=== PATIENT | male | born 1960 | race Caucasian/White ===

== ENCOUNTER 2017-02-24 15:34 | Inpatient (IN) | payer OTHER ==
[~2017-02-24] VITALS: Ht 172.7 cm; Wt 87.0 kg
[~2017-02-24 15:34] MED LIST: ALD25 PO; CENTRUM SILVER1 TA4 PO; CORGARD20 MG PO; FERROUS SULFAT325 M2 PO; FOL1 PO; LAC PO; LAC30L PO; LASIX20 MG PO; MAG PO; NATURAL IRON65 MG PO; PRI20 PO; PROPRANOLOL HCL10 MG PO; PROTONIX40 M1 PO; PROTONIX40 MG PO; THERAGRAN-M1 TA4 PO; THI100 PO
--- NOTE | 2017-02-24 16:03 | NUR ---
ABD PAIN STARTED LAST NIGHT 01/31 WITH MULTIPLE EPISODES OF N/V TODAY. HAS HX OF TUMORS AND CURRHOSIS AND RECENT CHEMO. DENIES DIARRHEA. ABD SOFT AND TENDER TO PALP RUQ WITHOUT PALP MASSES. BS PRESENT. PT ARRIVES ALERT AND ORIENTED WITH VSS AND MILD DISTRESS DUE TO PAIN UPON ARRIVAL. CONNECTED TO CNC MACHINIST 2ND SHIFT. PT AWAITING MD LOPEZ AT THIS TIME
--- NOTE | 2017-02-24 16:17 | NUR ---
DR PALACIO AT BEDSIDE FOR EVAL
[2017-02-24 17:05] LABS: CALCIUM 9.5 mg/dL (8.5-10.1); CHLORIDE SERUM 103 mmol/L (98-107); CREATININE SERUM 1.1 mg/dL (0.7-1.3); GFR1 > 60 mL/min; GLUCOSE SERUM 119 mg/dL (74-106); POTASSIUM SERUM 4.1 mmol/L (3.5-5.1); SODIUM SERUM 143 mmol/L (136-145)
[2017-02-24 17:07] LABS: BASOPHIL % 0.1 % (0-2)
[2017-02-24 17:09] LABS: ALBUMIN 3.9 g/dL (3.4-5.0); ALKALINE PHOSPHATASE 162 U/L (46-116); ALT/SGPT 50 U/L (16-63); AST/SGOT 67 U/L (15-37); BILIRUBIN TOTAL 5.1 mg/dL (0.20-1.00); LIPASE 142 IU/L (73-393); TOTAL PROTEIN, SERUM 7.8 g/dL (6.4-8.2)
--- NOTE | 2017-02-24 17:14 | NUR ---
PT LAYING WITH VSS AND NO DISTRESS NOTED. EASILY AROUSABLE TO NAME
[2017-02-24 17:35] LABS: PLATELET COUNT 79 x10^3mcL (130-400); RED CELL DISTRIBUTION WIDTH 15.5 % (11.5-14.5)
[2017-02-24 17:43] LABS: microscopic required? YES; urine erythrocyte NEGATIVE (NEGATIVE)
[2017-02-24] MEDS ORDERED: NATURE S BLEND TP (18:47)
--- NOTE | 2017-02-24 18:49 | NUR ---
PT TO BE ADMITTED. EXPLAINED TO PT AND PREPPED FOR ADMISSION
--- NOTE | 2017-02-24 18:53 | NUR ---
REPORT GIVEN TO AMADA BUCK RN
[2017-02-24 19:26] VITALS: BP 133/81
--- NOTE | 2017-02-24 19:30 | NUR ---
RECEIVED PT FROM ED VIA TAYE. ORIENTED PT TO ROOM AND SURROUNDINGS. IV NOTED TO LAC PATENT AND INTACT. TELE 4 PLACED ON PT READING NSR. INSTRUCTED PT ON THE USE OF CALL LIGHT FOR ASSISTANCE. ENDORSED PT TO PRIMARY NURSE ALESSANDRO
[2017-02-24 19:41] LABS: AMPHETAMINE QUAL UR NONE DETECTED (NEG <=1000)
[2017-02-24 19:42] LABS: T3 TOTAL 0.87 ng/mL
[2017-02-24 19:45] LABS: CHOLESTEROL/HDL RATIO 2.3; MAGNESIUM 1.6 mg/dL (1.8-2.4); PHOSPHOROUS 2.7 mg/dL (2.5-4.9)
[2017-02-24 19:46] LABS: FREE T4 1.19 ng/dL (0.76-1.46); FREE THYROXINE INDEX 3.1 ug/dL (1.4-4.5); T4(THYROXINE) 8.6 ug/dL (4.7-13.3)
--- NOTE | 2017-02-24 20:48 | NUR ---
NEWLY ADMITTED 57 YEARS OLD MALE PT, ALERT, PLEASANT AND VERY COOPERATIVE.STARTED IV NS AT 120 ML PER HOUR INFUSING WELL LEFT AC. AND STARTED LEVAQUIN IV FOR UTI. TOLERATED WELL. WILL MONITOR.
[2017-02-24 20:50] VITALS: BP 133/81
--- NOTE | 2017-02-24 22:14 | NUR ---
FLU VACCINE IM WAS ADMINISTERED IN THE RIGHT DELTOID AREA. TOLERATED WELL.
--- NOTE | 2017-02-24 22:55 | NUR ---
PT C/O ABDOMINAL PAIN 10/01. MEDICATED WITH PERCOCET 1 TAB PO. WILL MONITOR.
--- NOTE | 2017-02-25 03:15 | NUR ---
PT C/O NUASEATED. MEDICATED WITH ZOFRAN 4 MG IVPUSH. WILL MONITOR.
--- NOTE | 2017-02-25 03:24 | NUR ---
PT C/O STOMACH PAIN 10/31. MEDICATED WITH NORCO 1 TAB PO. IVSITE INFILTRATED LEFT AC.
--- NOTE | 2017-02-25 05:34 | NUR ---
PT HAS VOMITED ONCE WITH LIQUIDY VOMIUS, MILDLY GREENISH LIQUIDY. DENIES ANY PAIN FOR NOW. STILL HAS IV NS AT 120 ML PER HOUR INFUSING WELL IN THE LEFT HAND, NEW IV SITE. LEFT AC INFILTRATED. MADE COMFORTABLE IN BED. WAS MEDICATED WITH ZOSYN IV AND LEVQUIN IV. NO ADVERSE REACTION NOTED. WILL MONITOR.
[2017-02-25 05:36] VITALS: BP 152/81
--- NOTE | 2017-02-25 07:50 | NUR ---
RECEIVED PT IN BED ALERT AND ORIENTD X4. NSR ON TELE MONITOR. NO SOB. ABD SOFT/ROUND, BS ACTIVE, DENIES N/V/D. PT REPORTS FEELING MUCH BETTER, STATES ABD PAIN IS ONLY RATED 2/10 AND TOLERABLE AT THIS TIME. VOIDS FREELY. AMBULATORY. SKIN CDI. INSTRUCTED TO USE CALL LIGHT WHEN IN NEED OF ANY ASSISTANCE.
[2017-02-25 08:57] VITALS: BP 116/76
[2017-02-25 12:44] VITALS: BP 109/75
[2017-02-25 16:29] VITALS: BP 154/81
--- NOTE | 2017-02-25 16:59 | NUR ---
PT VOMITED X2. TOTAL OF 1000ML EMESIS. ZOFRAN IVP GIVEN. PT COMPLAINING OF SHARP PAIN TO MID LOWER ABDOMEN RATED 7/10. NORCO PO GIVEN.
--- NOTE | 2017-02-25 17:40 | NUR ---
PT CONTINUES TO COMPLAIN OF PAIN TO LOWER ABDOMEN RATED 8/10. PERCOCET PO GIVEN.
--- NOTE | 2017-02-25 19:30 | NUR ---
PT IS ALERT AND ORIENTED X 4. PLEASANT AND COOPERATIVE. LUNGS CLEAR ON AUSCULTATIONS BILATERALY. ROOM AIR. PT CONSTANTLY HAS ABDOMINAL PAIN AND OCCASIONALLY NAUSEA AND VOMITING. HE GOT ZOFRAN FROM THE DAY SHIFT. AND WAS FEELING BETTER AT THE BEGINNING OF THE SHIFT. PT HAS HX OF LIVER CA AND LUNG CA. WITH CHEMO THERAPY. LAST CHEMO WAS SEPTEMBER THIS YEAR. APPETITE IS ALWAYS POOR BUT ALWAYS LIKE TO DRINK WATER AND 7-UP. STILL GETTING LEVQUIN IV AND FLAGYL IV FOR UTI AND CHOLITHIASIS DEVELOPING CHOLECYSTITIS. STILL HAS IV NS AT 120 ML PER HOUR INFUSING WELL IN THE LEFT HAND. FOR PAIN MANAGEMENT PT IS GETTING NORCO AND PERCOCET AND WAS EFFECTIVE FAIRLY. WILL CONTINUE TO MONITOR.
--- NOTE | 2017-02-25 20:26 | NUR ---
PT C/O MODERATE ABDOMINAL PAIN 10/31. MEDICATED WITH NORCO 1 TAB PO. WILL MONITOR.
[2017-02-25 21:06] VITALS: BP 140/77
--- NOTE | 2017-02-25 21:28 | NUR ---
PT STATED THAT HE IS ANXIOUS AND WANTED TO REST. MEDICATED WITH ATIVAN 1 MG PO. WILL MONITOR.
--- NOTE | 2017-02-26 03:22 | NUR ---
PT C/O ABDOMINAL AND BACK PAIN 10/01. MEDICATED WITH DILAUDID 2 MG PO. WILL MONITOR.
--- NOTE | 2017-02-26 05:10 | NUR ---
PT IS RESTING. WAS MEDICATED WITH DILAUDID 2 MG PO AND WAS EFFECTIVE IN MANAGING HIS ABDOMINAL PAIN. STILL HAS IV NS T 120 ML PER HOUR INFUSING WELL IN THE LEFT HAND. MADE COMFORTABLE IN BED. CALL LIGHT WITHIN EASY REACH.
[2017-02-26 05:51] VITALS: BP 146/76
--- NOTE | 2017-02-26 07:10 | NUR ---
PT IN FOWLERS, NO DISTRESS REPORTED. PT ABLE TO VERBALIZED NEEDS. DENIES PAIN AT MOMENT. IV INFUSING WELL TO LEFT HAND #22. BED IN LOWEST POSITION, CALL LIGHT WITHIN REACH.
[2017-02-26 07:16] LABS: CALCIUM 8.1 mg/dL (8.5-10.1); CHLORIDE SERUM 103 mmol/L (98-107); GFR1 > 60 mL/min; GLUCOSE SERUM 110 mg/dL (74-106); MAGNESIUM 1.8 mg/dL (1.8-2.4); PHOSPHOROUS 1.6 mg/dL (2.5-4.9); POTASSIUM SERUM 3.8 mmol/L (3.5-5.1); SODIUM SERUM 138 mmol/L (136-145)
[2017-02-26 08:41] LABS: RED CELL DISTRIBUTION WIDTH 15.6 % (11.5-14.5)
[2017-02-26 08:57] VITALS: BP 130/78
[2017-02-26 09:20] LABS: ATYPICAL LYMPH 1 %; BAND NEUTROPHIL 0 % (0-10); BASOPHIL 0 % (0-2); MONOCYTE 3 % (0-7); SEGMENTED NEUTROPHILS 88 % (37-75)
[2017-02-26 09:21] LABS: PLATELET MORPHOLOGY PLATELETS DECREASED; rbc morphology (normal/abnorm) ABNORMAL (NORMAL)
[2017-02-26 09:27] LABS: PLATELET COUNT 46 x10^3mcL (130-400)
--- NOTE | 2017-02-26 10:45 | NUR ---
PT C/O NAUSEA. MEDICATED PER EMAR PT TOLERATED WELL. PT STATES NAUSEA CEASED POST MED ADMINISTRATION. STATES FEELING BETTER. CALL LIGHT WITHIN REACH.
--- NOTE | 2017-02-26 10:49 | NUR ---
DR. GRAHAM IN TO SEE PT.
--- NOTE | 2017-02-26 11:00 | NUR ---
CONSENT TO EGD WITNESSED. PT VERBALIZED UNDERSTANDING FOR PROCEDURE AFTER SPECIALIST EXPLAINED PROCEDURE.
--- NOTE | 2017-02-26 11:10 | NUR ---
PT TAKEN DOWN TO GI LAB VIA BED. NO DISTRESS AT MOMENT.
--- NOTE | 2017-02-26 12:30 | NUR ---
PT BACK FROM GI LAB. TRANSPORTED VIA BED. PT DENIES PAIN AT MOMENT. VITAL SIGNS STABLE. CALL LIGHT WITHIN REACH. WILL CONTINUE TO MONITOR.
[2017-02-26 13:12] VITALS: BP 133/75
[2017-02-26 18:11] VITALS: BP 152/86
--- NOTE | 2017-02-26 18:15 | NUR ---
PT C/O PAIN 6/10 ABDOMEN RUQ. MEDICATED PER EMAR, PASSED AFTERNOON MEDS. PT TOLERATED WELL. PT STATES PAIN 3/10 POST MEDICATION ADMINISTRATION. CALL LIGHT WITHIN REACH.
--- NOTE | 2017-02-26 19:31 | NUR ---
RECEIVED PT FROM PREVIOUS SHIFT. A/OX4. DENIES PAIN. DENIES SOB ON RA. IV PATENT AND INFUSING WELL WITH NO S/S OF INFILTRATION. CALL LIGHT WITHIN REACH, BED IN LOW POSITION. WILL CONTINUE TO MONITOR.
[2017-02-26 21:09] VITALS: BP 133/64
--- NOTE | 2017-02-27 03:01 | NUR ---
PAIN UNCONTROLLED BY DILAUDID. PAIN 10/31 TO ABD. PT C/O FEELING CONSTIPATED. DR BINGHAM NOTIFIED AND ORDER FOR TORADOL RECEIVED AND ADMINISTERED. EXPLAINED TO PT THAT DILAUDID AND NORCO COULD CONTRIBUTE TO CONSITPATION AND TORADOL WILL BE GIVEN AT THIS TIME FOR PAIN. OFFERED PT DULCOLAX SUPPOSITORY, PT STATES HE WILL WAIT UNTIL MORNING. WILL CONTINUE TO MONITOR.
[2017-02-27 05:37] VITALS: BP 125/82
--- NOTE | 2017-02-27 06:21 | NUR ---
NO ACUTE CHANGES THROUGHOUT SHIFT. PT A/OX4. DENIES PAIN AFTER RECEIVING TORADOL. PAIN 05/03. CALL LIGHT WITHIN REACH, BED IN LOW POSITION. WILL CONTINUE TO MONITOR.
[2017-02-27 07:01] LABS: CARBON DIOXIDE 29.3 mmol/L (21-32); CHLORIDE SERUM 103 mmol/L (98-107); CREATININE SERUM 0.9 mg/dL (0.7-1.3); GFR1 > 60 mL/min; GLUCOSE SERUM 123 mg/dL (74-106); MAGNESIUM 1.9 mg/dL (1.8-2.4); PHOSPHOROUS 2.9 mg/dL (2.5-4.9); POTASSIUM SERUM 3.6 mmol/L (3.5-5.1); SODIUM SERUM 138 mmol/L (136-145)
[2017-02-27 07:05] LABS: BASOPHIL % 0 % (0-2); PLATELET COUNT 61 x10^3mcL (130-400); RED CELL DISTRIBUTION WIDTH 15.6 % (11.5-14.5)
--- NOTE | 2017-02-27 07:20 | NUR ---
REASSESSMENT DONE. PT AWAKE, ALERT, ORIENTED. COOPERATIVE OF CARE. DENIES PAIN AT MOMENT. EFFORTLESS BREATHING ON ROOM AIR. IV INFUSING WELL TO LH #22 NS AT 120ML/HR. BED IN LOWEST POSITION, CALL LIGHT WITHIN REACH.
[2017-02-27 09:18] VITALS: BP 121/75
[2017-02-27 09:45] LABS: BILIRUBIN DIRECT 2.34 mg/dL (0.0-0.2); BILIRUBIN TOTAL 3.8 mg/dL (0.20-1.00)
[2017-02-27 09:49] LABS: ALBUMIN 2.5 g/dL (3.4-5.0); TOTAL PROTEIN, SERUM 5.7 g/dL (6.4-8.2)
--- NOTE | 2017-02-27 10:46 | NUR ---
PT PICKED UP BY [facility] STAFF FOR [facility] SCAN. PT TRANSPORTED VIA WHEELCHAIR. NO DISTRESS NOTED.
--- NOTE | 2017-02-27 12:12 | NUR ---
PT BACK FROM [facility]AN. PT SITTING IN BED. DENIES PAIN AT MOMENT. CALL LIGHT WITHIN REACH.
[2017-02-27 13:26] VITALS: BP 143/93
--- NOTE | 2017-02-27 16:45 | NUR ---
PASSED AFTERNOON MEDS. PT TOLERATED WELL. PT DENIES PAIN AT MOMENT. EFFORTLESS BREATHING NOTED. CALL LIGHT WITHIN REACH.
[2017-02-27 17:30] VITALS: BP 137/87
--- NOTE | 2017-02-27 18:12 | NUR ---
PT HAD VOMITING EPISODE, MEDICATED WITH ANTIEMETIC MEDICATION, PT TOLERATED WELL. PT DENIES NAUSEA AT MOMENT. DENIES ABDOMINAL PAIN. REPORTS ABDOMINAL BLOATING WHEN TAKING FLUIDS. CALL LIGHT WITHIN REACH.
--- NOTE | 2017-02-27 19:34 | NUR ---
SHIFT REASSESSMENT DONE.PATIENT ALERT AND ORIENTED.BREATHING EASY.AMBULATORY,REMINDED TO CALL FOR ASSISTANCE.NS AT 120 CC/ HOUR.IV SITE L HAND,C/O TENDERNESS FROM PREVIOUS SHIFT,REMINDED,I CAN START A NEW ONE.MED SURG PATIENT.SKIN INTACT.HAD EGD YEDTERDATY,VARICIES,DX.SCD INTACT. NO PAIN AT THIS TIME.CALL LIGHT IN REACH.
--- NOTE | 2017-02-27 19:38 | NUR ---
SHIFT REASSESSMENT DONE.PATIENT ALERT AND ORIENTED.BREATHING EASY.AMBULATORY.NS AT 120 CC/ HOUR.IV SITE L HAND PATENT.MED SURG PATIENT.SKIN INTACT.SCD ORDERED.NO PAIN AT THIS TIME,REMINDED TO CALL IF HE IS ON PAIN.VOIDING,AMBULATORY REPORTED.PLEASANT AND COOPERATIVE OF CARE.
[2017-02-27 20:41] VITALS: BP 147/96
--- NOTE | 2017-02-27 21:02 | NUR ---
PATIENT PM MEDS GIVEN,SWALLOWS WELL.HE SAYS THAT EVERYTIME WE GIVE HIM MEDS THRU IV HE IS NAUSEATED,REMINDED IT SHOULD SETTLE DOWN HIS STOMACH.PROTONIX AND REGLAN.ALL OTHER PM MEDS GIVEN.SWALLOWS WELL.
--- NOTE | 2017-02-28 00:44 | NUR ---
PATIENT CHECKED AT INTERVALS.NO RESP DISTRESS.
--- NOTE | 2017-02-28 04:56 | NUR ---
PATIENT GIVEN NORCO,C/O BACK PAIN.ALSO K PAD IN PLACE.PATIENT AMBULATORY RESTROOM.VOIDING WELL.PATIENT SURGICAL CONSULT DR OROZCO,NPO,NO ORDER YET BUT CHECKLIST INITIATED.
[2017-02-28 05:08] VITALS: BP 134/82
--- NOTE | 2017-02-28 06:00 | NUR ---
PATIENT GIVEN AM MEDS.NS AT 120 CC/ HOUR.IV SITE REMAINS PATENT.WILL ENDORSE TO NEXT SHIFT.CALL LITE IN REACH.
--- NOTE | 2017-02-28 07:50 | NUR ---
RC'D PT RESTING IN BED WITH NO APPARENT SIGNS OF DISTRESS. A/A/O/X4, SPEECH CLEAR AND APPROPRIATE. MED-SURG. DENIES CHEST PAIN/PRESSURE. PALP PULSES, NO EDEMA. RESPIRATIONS EQUAL AND UNLABORED. LUNGS CTA. ON RA, DENIES SOB. ABDOMEN SOFT AND TENDER TO TOUCH. ACTIVE BS. DENIES N/V AT THIS TIME. VOIDS FREELY, DENIES BURNING. AMBULATORY WITH BRP. SKIN W/D/I. DENIES PAIN AT THIS TIME. IV PATENT AND INFUSING. CALM AND COOPERATIVE AT THIS TIME. BED IN LOW POSITION. EDUCATED ON USING CALL LIGHT WHEN NEEDING ASSISTANCE. CALL LIGHT IN REACH. WILL CONTINUE TO MONITOR.
--- NOTE | 2017-02-28 09:20 | NUR ---
PT NAUSEATED AT THIS TIME. REQUESTED TO HOLD OFF ON MEDICATIONS AT THIS TIME. WILL CONTINUE TO MONITOR.
[2017-02-28 09:40] VITALS: BP 137/85
[2017-02-28] MEDS ORDERED: CAR1 PO (12:30)
[2017-02-28] MEDS ORDERED: PROTONIX40 MG/Pac1 PO (12:31)
[2017-02-28] MEDS ORDERED: REG10 PO (12:35)
[2017-02-28] MEDS ORDERED: LAC30L PO (12:39)
[2017-02-28 13:09] VITALS: BP 137/85
--- NOTE | 2017-02-28 14:26 | NUR ---
PT COMPLAINING OF AUSEA. MEDICATED WITH ZOFRAN IVP PRN PER MED REC. RESPIRATION EQUAL AND UNLABORED BILAT. CALL LIGHT IN REACH. WILL CONTINUE TO MONITOR.
--- NOTE | 2017-02-28 17:10 | NUR ---
PT PROVIDED WITH DC HOME INSTRUCTIONS. GIVEN MEDICATION EDUCATION. MADE AWARE PRESCRIPTIONS HAVE BEEN SENT TO PT'S SELECTED PHARMACY. MADE AWARE OF FOLLOW UP APPT WITH PCP. INSTRUCTED ON IMPORTANCE OF FOLLOWING MEDICATIONS ORDERED. MADE AWARE OF WORSENING SIGNS AND SYMPTOMS TO RETURN TO ED OR REPORTTO PCP. PT VERBALIZED UNDERSTANDING OF INSTRUCTIONS. TELE AND IV DC'D, CATHETER INTACT. PT TRANSPORTED VIA WC TO THE LOBBY WITH ALL PERSONAL BELONGINGS IN HAND ACCOMPANIED BY DITCH CLEANER, FREE OF ANY APPARENT SIGNS OF DISTRESS.
== END 2017-02-28 17:05 | disposition home or self-care (01) | DRG 444 ==
LOC: ED 15:34 → DU 18:13 → MU 02-27 17:55
PROVIDERS: Emergency Medicine; Internal Medicine Gastroenterology; Student in an Organized Health Care Education/Training Program; ADMIT Family Medicine Sports Medicine
PROC: 0DB68ZX Excision of Stomach, Via Natural or Artificial Opening Endoscopic, Diagnostic (ICD-10-PCS; principal; 2017-02-26 11:15)
DX: K80.20 Calculus of gallbladder without cholecystitis without obstruction (principal); N17.0 Acute kidney failure with tubular necrosis; C22.0 Liver cell carcinoma; N39.0 Urinary tract infection, site not specified; I85.00 Esophageal varices without bleeding; K31.84 Gastroparesis; B18.2 Chronic viral hepatitis C; K70.31 Alcoholic cirrhosis of liver with ascites; F10.20 Alcohol dependence, uncomplicated; K29.80 Duodenitis without bleeding; R80.9 Proteinuria, unspecified; E83.42 Hypomagnesemia; E83.39 Other disorders of phosphorus metabolism; E78.5 Hyperlipidemia, unspecified; F17.210 Nicotine dependence, cigarettes, uncomplicated; Z68.26 Body mass index [BMI] 26.0-26.9, adult; I10 Essential (primary) hypertension; D69.6 Thrombocytopenia, unspecified
CPT/HCPCS: 43235; 78226; 82962; 83880; 84439; 90658; A9537; C9113; J0290; J1200; J1610; J1885; J1956; J2250; J2270; J2310; J2405; J2543; J2765; J3010; J3475; J3490; J7030; Q0092

== ENCOUNTER 2017-04-15 09:20 | Emergency (ER) | payer OTHER ==
[~2017-04-15 09:20] MED LIST changes: +CAR1 PO; +NATURE S BLEND TP; +PROTONIX40 MG/Pac1 PO; +REG10 PO
[2017-04-15 11:08] VITALS: BP 128/51
== END 2017-04-15 11:24 | disposition home or self-care (01) ==
LOC: ED 09:20
DX: S16.1XXA Strain of muscle, fascia and tendon at neck level, initial encounter (principal); S39.012A Strain of muscle, fascia and tendon of lower back, initial encounter; I10 Essential (primary) hypertension; V49.9XXA Car occupant (driver) (passenger) injured in unspecified traffic accident, initial encounter; Y93.89 Activity, other specified; Y92.89 Other specified places as the place of occurrence of the external cause; Y99.8 Other external cause status

== ENCOUNTER 2017-04-21 14:34 | Emergency (ER) | payer OTHER ==
[~2017-04-21] VITALS: Ht 180.3 cm; Wt 88.5 kg
[2017-04-21 14:50] VITALS: Ht 180.3 cm; Wt 88.5 kg
[2017-04-21 16:10] LABS: BILIRUBIN TOTAL 4.6 mg/dL (0.20-1.00); CALCIUM 7.6 mg/dL (8.5-10.1); CREATININE SERUM 2.6 mg/dL (0.7-1.3)
[2017-04-21 16:15] LABS: ALBUMIN 2.1 g/dL (3.4-5.0); TOTAL PROTEIN, SERUM 4.7 g/dL (6.4-8.2)
[2017-04-21 16:17] LABS: PLATELET COUNT 126 x10^3mcL (130-400); RED CELL DISTRIBUTION WIDTH 16.5 % (11.5-14.5)
[2017-04-21 16:18] LABS: POTASSIUM SERUM 6.2 mmol/L (3.5-5.1)
[2017-04-21 17:23] LABS: BAND NEUTROPHIL 4 % (0-10); BASOPHIL 0 % (0-2); METAMYELOCTE 1 % (0-2); MONOCYTE 3 % (0-7); SEGMENTED NEUTROPHILS 85 % (37-75)
[2017-04-21 17:26] LABS: rbc morphology (normal/abnorm) ABNORMAL (NORMAL); target cell (codocyte) 2+
[2017-04-21 17:27] LABS: PLATELET MORPHOLOGY PLATELETS DECREASED
[2017-04-21 21:43] VITALS: BP 99/72
== END 2017-04-21 21:43 | disposition short-term general hospital (02) ==
LOC: ED 14:34
PROVIDERS: Emergency Medicine
DX: S36.039A Unspecified laceration of spleen, initial encounter (principal); K92.2 Gastrointestinal hemorrhage, unspecified; N17.9 Acute kidney failure, unspecified; V49.9XXA Car occupant (driver) (passenger) injured in unspecified traffic accident, initial encounter; Y93.89 Activity, other specified; Y99.8 Other external cause status; Y92.89 Other specified places as the place of occurrence of the external cause
CPT/HCPCS: 83880; C9113; J1200; J2405; J2765; J3490; J7030; J7040; P9016; Q0092

== ENCOUNTER 2017-08-06 13:06 | Inpatient (IN) | payer OTHER ==
[~2017-08-06] VITALS: Ht 172.7 cm; Wt 84.1 kg
[2017-08-06 14:05] LABS: BASOPHIL % 0.2 % (0-2)
[2017-08-06 14:13] LABS: CARBON DIOXIDE 27.4 mmol/L (21-32); CHLORIDE SERUM 93 mmol/L (98-107); GFR1 > 60 mL/min; GLUCOSE SERUM 124 mg/dL (74-106); POTASSIUM SERUM 4.2 mmol/L (3.5-5.1); SODIUM SERUM 129 mmol/L (136-145)
[2017-08-06 14:17] LABS: ALKALINE PHOSPHATASE 144 U/L (46-116); ALT/SGPT 28 U/L (16-63); AMYLASE 32 U/L (25-115); AST/SGOT 48 U/L (15-37); BILIRUBIN TOTAL 6.2 mg/dL (0.20-1.00); LIPASE 133 IU/L (73-393); TOTAL PROTEIN, SERUM 7.8 g/dL (6.4-8.2)
[2017-08-06 14:18] LABS: ALBUMIN 2.9 g/dL (3.4-5.0)
[2017-08-06 14:28] LABS: PLATELET COUNT 98 x10^3mcL (130-400); RED CELL DISTRIBUTION WIDTH 16.1 % (11.5-14.5)
[2017-08-06] MEDS ORDERED: TRAMADOL HCL50 MG PO (16:24)
[2017-08-06] MEDS ORDERED: PROPRANOLOL HCL10 MG PO (16:24)
[2017-08-06] MEDS ORDERED: NOR10T PO (16:25)
[2017-08-06 16:49] LABS: microscopic required? YES; urine erythrocyte TRACE (NEGATIVE)
[2017-08-06 16:50] VITALS: BP 104/57
[2017-08-06 17:01] LABS: MAGNESIUM 1.9 mg/dL (1.8-2.4); PHOSPHOROUS 2.7 mg/dL (2.5-4.9)
[2017-08-06 17:01] LABS: AMPHETAMINE QUAL UR NONE DETECTED (NEG <=1000)
[2017-08-06 17:02] LABS: CHOLESTEROL/HDL RATIO 2.2
[2017-08-06 17:11] LABS: T3 TOTAL 0.79 ng/mL
[2017-08-06 17:34] LABS: FREE T4 1.57 ng/dL (0.76-1.46); FREE THYROXINE INDEX 3.6 ug/dL (1.4-4.5); T4(THYROXINE) 9.3 ug/dL (4.7-13.3)
[2017-08-06 21:18] VITALS: BP 111/56
[2017-08-07 06:00] VITALS: BP 118/67
[2017-08-07 06:32] LABS: BASOPHIL % 0.1 % (0-2)
[2017-08-07 06:44] LABS: CALCIUM 8.2 mg/dL (8.5-10.1); CARBON DIOXIDE 25.4 mmol/L (21-32); CHLORIDE SERUM 98 mmol/L (98-107); CREATININE SERUM 0.9 mg/dL (0.7-1.3); GFR1 > 60 mL/min; GLUCOSE SERUM 97 mg/dL (74-106); POTASSIUM SERUM 4.1 mmol/L (3.5-5.1); SODIUM SERUM 130 mmol/L (136-145)
[2017-08-07 06:55] LABS: PLATELET COUNT 68 x10^3mcL (130-400); RED CELL DISTRIBUTION WIDTH 16.5 % (11.5-14.5)
[2017-08-07 09:20] VITALS: BP 120/77
[2017-08-07 12:29] VITALS: BP 113/67
[2017-08-07 18:24] VITALS: BP 112/63
[2017-08-07 21:12] VITALS: BP 124/73
[2017-08-08 04:08] VITALS: BP 128/80
[2017-08-08 06:25] LABS: CALCIUM 7.6 mg/dL (8.5-10.1); CARBON DIOXIDE 23.7 mmol/L (21-32); CHLORIDE SERUM 99 mmol/L (98-107); CREATININE SERUM 0.9 mg/dL (0.7-1.3); GFR1 > 60 mL/min; GLUCOSE SERUM 108 mg/dL (74-106); PHOSPHOROUS 3.1 mg/dL (2.5-4.9); POTASSIUM SERUM 4.2 mmol/L (3.5-5.1); SODIUM SERUM 131 mmol/L (136-145)
[2017-08-08 08:12] LABS: BASOPHIL % 0.2 % (0-2); PLATELET COUNT 90 x10^3mcL (130-400); RED CELL DISTRIBUTION WIDTH 16.8 % (11.5-14.5)
[2017-08-08 09:25] VITALS: BP 119/70
[2017-08-08 10:05] LABS: BILIRUBIN DIRECT 2.98 mg/dL (0.0-0.2); BILIRUBIN TOTAL 3.8 mg/dL (0.20-1.00)
[2017-08-08 10:09] LABS: TOTAL PROTEIN, SERUM 5.5 g/dL (6.4-8.2)
[2017-08-08 12:44] VITALS: BP 129/77
[2017-08-08 17:56] VITALS: BP 114/65
[2017-08-08 22:18] VITALS: BP 105/64
[2017-08-09] VITALS (8 sets, daily range): BP systolic 96–127; BP diastolic 51–74
[2017-08-09 05:23] LABS: BASOPHIL % 0.2 % (0-2); PLATELET COUNT 161 x10^3mcL (130-400)
[2017-08-09 05:31] LABS: CALCIUM 7.9 mg/dL (8.5-10.1); CARBON DIOXIDE 22.6 mmol/L (21-32); CHLORIDE SERUM 106 mmol/L (98-107); CREATININE SERUM 0.9 mg/dL (0.7-1.3); GFR1 > 60 mL/min; GLUCOSE SERUM 114 mg/dL (74-106); POTASSIUM SERUM 5.3 mmol/L (3.5-5.1); SODIUM SERUM 134 mmol/L (136-145)
[2017-08-09 05:33] LABS: RED CELL DISTRIBUTION WIDTH 16.4 % (11.5-14.5)
[2017-08-09 15:20] LABS: BASOPHIL % 0.7 % (0-2); PLATELET COUNT 162 x10^3mcL (130-400); RED CELL DISTRIBUTION WIDTH 16.5 % (11.5-14.5)
[2017-08-09 21:23] LABS: BASOPHIL % 1.5 % (0-2); PLATELET COUNT 165 x10^3mcL (130-400); RED CELL DISTRIBUTION WIDTH 16.5 % (11.5-14.5)
[2017-08-10] VITALS (9 sets, daily range): BP systolic 95–121; BP diastolic 52–73
[2017-08-10 05:08] LABS: BASOPHIL % 0.2 % (0-2)
[2017-08-10 05:13] LABS: CALCIUM 7.4 mg/dL (8.5-10.1); CARBON DIOXIDE 22.1 mmol/L (21-32); CHLORIDE SERUM 109 mmol/L (98-107); CREATININE SERUM 0.9 mg/dL (0.7-1.3); GFR1 > 60 mL/min; GLUCOSE SERUM 116 mg/dL (74-106); MAGNESIUM 2.4 mg/dL (1.8-2.4); PHOSPHOROUS 3.1 mg/dL (2.5-4.9); POTASSIUM SERUM 3.8 mmol/L (3.5-5.1); SODIUM SERUM 139 mmol/L (136-145)
[2017-08-10 05:28] LABS: PLATELET COUNT 127 x10^3mcL (130-400); RED CELL DISTRIBUTION WIDTH 16.7 % (11.5-14.5)
[2017-08-11 05:47] VITALS: BP 98/57
[2017-08-11 06:48] LABS: CALCIUM 7.3 mg/dL (8.5-10.1); CHLORIDE SERUM 104 mmol/L (98-107); CREATININE SERUM 0.8 mg/dL (0.7-1.3); GFR1 > 60 mL/min; GLUCOSE SERUM 124 mg/dL (74-106); PHOSPHOROUS 2.6 mg/dL (2.5-4.9); POTASSIUM SERUM 3.9 mmol/L (3.5-5.1); SODIUM SERUM 134 mmol/L (136-145)
[2017-08-11 07:31] LABS: BASOPHIL % 0.2 % (0-2); PLATELET COUNT 130 x10^3mcL (130-400)
[2017-08-11 07:33] LABS: RED CELL DISTRIBUTION WIDTH 16.5 % (11.5-14.5)
[2017-08-11 09:16] VITALS: BP 110/72
[2017-08-11 13:17] VITALS: BP 113/71
[2017-08-11 17:45] VITALS: BP 112/59
[2017-08-11 20:44] VITALS: BP 115/70
[2017-08-12 05:09] VITALS: BP 103/62
[2017-08-12 06:11] LABS: CALCIUM 7.7 mg/dL (8.5-10.1); CHLORIDE SERUM 103 mmol/L (98-107); CREATININE SERUM 0.8 mg/dL (0.7-1.3); GFR1 > 60 mL/min; GLUCOSE SERUM 93 mg/dL (74-106); SODIUM SERUM 135 mmol/L (136-145)
[2017-08-12 06:49] LABS: PLATELET COUNT 170 x10^3mcL (130-400); RED CELL DISTRIBUTION WIDTH 16.5 % (11.5-14.5)
[2017-08-12 09:10] VITALS: BP 99/54
[2017-08-12 11:37] LABS: BAND NEUTROPHIL 0 % (0-10); BASOPHIL 0 % (0-2); MONOCYTE 7 % (0-7); SEGMENTED NEUTROPHILS 89 % (37-75)
[2017-08-12 11:38] LABS: PLATELET MORPHOLOGY PLATELETS DECREASED; rbc morphology (normal/abnorm) ABNORMAL (NORMAL)
[2017-08-12 13:01] VITALS: BP 101/60
[2017-08-12 16:07] LABS: PLATELET COUNT 195 x10^3mcL (130-400)
[2017-08-12 16:11] LABS: RED CELL DISTRIBUTION WIDTH 16.6 % (11.5-14.5)
[2017-08-12 16:47] VITALS: BP 112/62
[2017-08-12 16:47] LABS: BAND NEUTROPHIL 9 % (0-10); BASOPHIL 0 % (0-2); METAMYELOCTE 2 % (0-2); MONOCYTE 5 % (0-7); SEGMENTED NEUTROPHILS 80 % (37-75)
[2017-08-12 16:49] LABS: rbc morphology (normal/abnorm) ABNORMAL (NORMAL)
[2017-08-12 16:51] LABS: PLATELET MORPHOLOGY PLATELETS NORMAL
[2017-08-12 21:19] VITALS: BP 107/63
[2017-08-13 06:03] VITALS: BP 93/53
[2017-08-13 06:53] LABS: CALCIUM 7.9 mg/dL (8.5-10.1); CARBON DIOXIDE 25.4 mmol/L (21-32); CHLORIDE SERUM 105 mmol/L (98-107); CREATININE SERUM 0.9 mg/dL (0.7-1.3); GFR1 > 60 mL/min; GLUCOSE SERUM 92 mg/dL (74-106); POTASSIUM SERUM 4.2 mmol/L (3.5-5.1); SODIUM SERUM 136 mmol/L (136-145)
[2017-08-13 07:56] LABS: BASOPHIL % 0.4 % (0-2); PLATELET COUNT 147 x10^3mcL (130-400)
[2017-08-13 07:57] LABS: RED CELL DISTRIBUTION WIDTH 17.3 % (11.5-14.5)
[2017-08-13 08:22] LABS: rbc morphology (normal/abnorm) ABNORMAL (NORMAL)
[2017-08-13 08:48] VITALS: BP 96/60
[2017-08-13 12:46] VITALS: BP 94/55
[2017-08-13] MEDS ORDERED: INTEGRA-F1 CAP PO (14:33)
[2017-08-13] MEDS ORDERED: PHARMASSURE VI500 MG PO (14:34)
[2017-08-13] MEDS ORDERED: CARAFATE1 GM PO (14:37)
[2017-08-13] MEDS ORDERED: KEFLEX500 M1 PO (14:53)
[2017-08-13] MEDS ORDERED: BD LACTINEX1.4 MG PO (14:54)
[2017-08-13 15:05] VITALS: BP 94/55
== END 2017-08-13 17:05 | disposition home or self-care (01) | DRG 177 ==
LOC: ED 13:06 → IC 15:36 → DU 15:36 → IC 08-09 05:40 → DU 08-10 16:48
PROVIDERS: Family Medicine; Family Medicine Sports Medicine; Internal Medicine Gastroenterology
PROC: B548ZZA Ultrasonography of Superior Vena Cava, Guidance (ICD-10-PCS; 2017-08-09)
PROC: 06L38CZ Occlusion of Esophageal Vein with Extraluminal Device, Via Natural or Artificial Opening Endoscopic (ICD-10-PCS; principal; 2017-08-09 09:00)
PROC: 02HV33Z Insertion of Infusion Device into Superior Vena Cava, Percutaneous Approach (ICD-10-PCS; 2017-08-09 09:00)
DX: J69.0 Pneumonitis due to inhalation of food and vomit (principal); K57.31 Diverticulosis of large intestine without perforation or abscess with bleeding; N17.0 Acute kidney failure with tubular necrosis; I85.11 Secondary esophageal varices with bleeding; G93.41 Metabolic encephalopathy; J96.01 Acute respiratory failure with hypoxia; C22.0 Liver cell carcinoma; E87.1 Hypo-osmolality and hyponatremia; E44.0 Moderate protein-calorie malnutrition; N39.0 Urinary tract infection, site not specified; K72.90 Hepatic failure, unspecified without coma; G90.8 Other disorders of autonomic nervous system; J32.9 Chronic sinusitis, unspecified; I10 Essential (primary) hypertension; F17.210 Nicotine dependence, cigarettes, uncomplicated; E87.8 Other disorders of electrolyte and fluid balance, not elsewhere classified; R31.9 Hematuria, unspecified; R74.0 Nonspecific elevation of levels of transaminase and lactic acid dehydrogenase [LDH]; K74.60 Unspecified cirrhosis of liver; Z82.49 Family history of ischemic heart disease and other diseases of the circulatory system; Z84.89 Family history of other specified conditions; Z68.28 Body mass index [BMI] 28.0-28.9, adult
CPT/HCPCS: 36556; 43235; 83880; 84439; 87804; 97110-GP; 97116-GP; 97530-GP; C9113; J0290; J0696; J1200; J1610; J1642; J1885; J1940; J2060; J2250; J2270; J2310; J2354; J2405; J2543; J2765; J2916; J3010; J3490; J7030; J7050; J7620; J8597; P9016; Q0092; Q9967

== ENCOUNTER 2018-03-06 12:10 | Inpatient (IN) | payer OTHER ==
[~2018-03-06] VITALS: Ht 180.3 cm; Wt 91.2 kg
[~2018-03-06 12:10] MED LIST changes: +BD LACTINEX1.4 MG PO; +CARAFATE1 GM PO; +INTEGRA-F1 CAP PO; +KEFLEX500 M1 PO; +NOR10T PO; +PHARMASSURE VI500 MG PO; +TRAMADOL HCL50 MG PO
[2018-03-06 12:25] VITALS: Ht 180.3 cm; Wt 91.2 kg
[2018-03-06 13:27] LABS: BASOPHIL % 0.4 % (0-2)
[2018-03-06 13:34] LABS: CALCIUM 8.9 mg/dL (8.5-10.1); CARBON DIOXIDE 26.2 mmol/L (21-32); CHLORIDE SERUM 105 mmol/L (98-107); CREATININE SERUM 0.8 mg/dL (0.7-1.3); GFR1 > 60 mL/min; GLUCOSE SERUM 110 mg/dL (74-106); POTASSIUM SERUM 4.9 mmol/L (3.5-5.1); SODIUM SERUM 138 mmol/L (136-145)
[2018-03-06 13:38] LABS: ALKALINE PHOSPHATASE 248 U/L (46-116); ALT/SGPT 54 U/L (16-63); AST/SGOT 122 U/L (15-37); BILIRUBIN TOTAL 11.1 mg/dL (0.20-1.00); LIPASE 335 IU/L (73-393); RED CELL DISTRIBUTION WIDTH 14.8 % (11.5-14.5); TOTAL PROTEIN, SERUM 7.4 g/dL (6.4-8.2)
[2018-03-06 13:39] LABS: PLATELET COUNT 66 x10^3mcL (130-400)
[2018-03-06 13:40] LABS: ALBUMIN 2.9 g/dL (3.4-5.0)
[2018-03-06 15:29] LABS: MAGNESIUM 1.9 mg/dL (1.8-2.4); PHOSPHOROUS 2.3 mg/dL (2.5-4.9)
[2018-03-06 15:42] LABS: FREE T4 1.3 ng/dL (0.76-1.46); T4(THYROXINE) 8.4 ug/dL (4.7-13.3)
[2018-03-06 16:34] VITALS: BP 133/85
[2018-03-06 16:39] LABS: T3 TOTAL 0.87 ng/mL
[2018-03-06 20:43] VITALS: BP 146/83
[2018-03-07 05:53] VITALS: BP 122/70
[2018-03-07 06:52] LABS: ALKALINE PHOSPHATASE 174 U/L (46-116); ALT/SGPT 41 U/L (16-63); AST/SGOT 85 U/L (15-37); BILIRUBIN TOTAL 10.3 mg/dL (0.20-1.00); CALCIUM 8.1 mg/dL (8.5-10.1); CARBON DIOXIDE 26.8 mmol/L (21-32); CHLORIDE SERUM 104 mmol/L (98-107); CREATININE SERUM 0.9 mg/dL (0.7-1.3); GFR1 > 60 mL/min; GLUCOSE SERUM 108 mg/dL (74-106); MAGNESIUM 1.7 mg/dL (1.8-2.4); PHOSPHOROUS 2.7 mg/dL (2.5-4.9); SODIUM SERUM 137 mmol/L (136-145)
[2018-03-07 06:55] LABS: ALBUMIN 2.4 g/dL (3.4-5.0); TOTAL PROTEIN, SERUM 5.8 g/dL (6.4-8.2)
[2018-03-07 07:37] LABS: AMPHETAMINE QUAL UR NONE DETECTED (See below)
[2018-03-07 07:49] LABS: UA SPECIFIC GRAVITY 1.015 (1.005-1.035); microscopic required? YES; urine erythrocyte NEGATIVE (NEGATIVE)
[2018-03-07 08:45] VITALS: BP 120/72
[2018-03-07 09:12] LABS: BASOPHIL % 0.6 % (0-2)
[2018-03-07 09:17] LABS: RED CELL DISTRIBUTION WIDTH 15.1 % (11.5-14.5)
[2018-03-07 09:25] LABS: PLATELET COUNT 47 x10^3mcL (130-400)
[2018-03-07 13:50] VITALS: BP 137/87
[2018-03-07 17:15] VITALS: BP 129/81
[2018-03-07 18:58] LABS: BASOPHIL % 0.7 % (0-2)
[2018-03-07 18:59] LABS: PLATELET COUNT 54 x10^3mcL (130-400); RED CELL DISTRIBUTION WIDTH 14.6 % (11.5-14.5)
[2018-03-07 21:41] VITALS: BP 147/76
[2018-03-08 05:51] VITALS: BP 130/73
[2018-03-08 06:04] LABS: BASOPHIL % 0.7 % (0-2)
[2018-03-08 06:07] LABS: CALCIUM 7.9 mg/dL (8.5-10.1); CARBON DIOXIDE 27.4 mmol/L (21-32); CHLORIDE SERUM 105 mmol/L (98-107); GFR1 > 60 mL/min; GLUCOSE SERUM 100 mg/dL (74-106); MAGNESIUM 1.8 mg/dL (1.8-2.4); PHOSPHOROUS 2.8 mg/dL (2.5-4.9); POTASSIUM SERUM 4.1 mmol/L (3.5-5.1); SODIUM SERUM 140 mmol/L (136-145)
[2018-03-08 06:24] LABS: PLATELET COUNT 52 x10^3mcL (130-400); RED CELL DISTRIBUTION WIDTH 14.8 % (11.5-14.5)
[2018-03-08 09:47] VITALS: BP 130/79
[2018-03-08 11:20] VITALS: BP 130/79
== END 2018-03-08 12:44 | disposition home or self-care (01) | DRG 280 ==
LOC: ED 12:10 → DU 14:12 → EDBEDREQ 14:33 → EDBEDREQSVC 14:33 → DU 15:43
PROVIDERS: Emergency Medicine; Family Medicine; Internal Medicine; Internal Medicine Gastroenterology
PROC: 06L38CZ Occlusion of Esophageal Vein with Extraluminal Device, Via Natural or Artificial Opening Endoscopic (ICD-10-PCS; principal; 2018-03-07 12:30)
DX: K70.31 Alcoholic cirrhosis of liver with ascites (principal); N17.0 Acute kidney failure with tubular necrosis; I85.11 Secondary esophageal varices with bleeding; E44.0 Moderate protein-calorie malnutrition; E83.39 Other disorders of phosphorus metabolism; D69.59 Other secondary thrombocytopenia; D68.4 Acquired coagulation factor deficiency; D62 Acute posthemorrhagic anemia; R74.0 Nonspecific elevation of levels of transaminase and lactic acid dehydrogenase [LDH]; B18.2 Chronic viral hepatitis C; I10 Essential (primary) hypertension; E78.1 Pure hyperglyceridemia; Z68.28 Body mass index [BMI] 28.0-28.9, adult; F10.20 Alcohol dependence, uncomplicated; Y90.9 Presence of alcohol in blood, level not specified; F17.210 Nicotine dependence, cigarettes, uncomplicated
CPT/HCPCS: 43235; 82962; 83880; 84439; C9113; G0480; J0696; J0780; J1610; J2250; J2310; J2354; J2405; J3010; J3475; J3490; J7030; Q0092

== ENCOUNTER 2018-04-12 11:34 | Inpatient (IN) | payer OTHER ==
[~2018-04-12] VITALS: Ht 180.3 cm; Wt 94.9 kg
[2018-04-12 11:52] VITALS: Ht 180.3 cm; Wt 94.9 kg
[2018-04-12 12:53] LABS: BASOPHIL % 0.3 % (0-2)
[2018-04-12 12:56] LABS: PLATELET COUNT 100 x10^3mcL (130-400)
[2018-04-12 13:10] LABS: CARBON DIOXIDE 27.8 mmol/L (21-32); CHLORIDE SERUM 105 mmol/L (98-107); GFR1 > 60 mL/min; GLUCOSE SERUM 125 mg/dL (74-106); POTASSIUM SERUM 4.1 mmol/L (3.5-5.1); SODIUM SERUM 141 mmol/L (136-145)
[2018-04-12 13:28] LABS: ALKALINE PHOSPHATASE 238 U/L (46-116); ALT/SGPT 35 U/L (16-63); AST/SGOT 76 U/L (15-37); BILIRUBIN TOTAL 6.6 mg/dL (0.20-1.00); LIPASE 195 IU/L (73-393); TOTAL PROTEIN, SERUM 7.7 g/dL (6.4-8.2)
[2018-04-12 13:32] LABS: ALBUMIN 2.9 g/dL (3.4-5.0)
[2018-04-12] MEDS ORDERED: VIT C-ROSE HIP500 MG ×2 (14:46→14:47)
[2018-04-12] MEDS ORDERED: PROPRANOLOL HCL10 MG PO (14:46)
[2018-04-12] MEDS ORDERED: FERROUS SULFAT325 M2 PO (14:46)
[2018-04-12] MEDS ORDERED: OSTERA TABLET1 EACH (14:46)
[2018-04-12] MEDS ORDERED: TRAMADOL HCL50 MG PO (14:47)
[2018-04-12 15:21] VITALS: BP 164/87
[2018-04-12 15:57] LABS: CHOLESTEROL/HDL RATIO 3.2; MAGNESIUM 1.6 mg/dL (1.8-2.4); PHOSPHOROUS 2.4 mg/dL (2.5-4.9)
[2018-04-12 16:16] LABS: T3 TOTAL 0.75 ng/mL
[2018-04-12 16:17] LABS: FREE T4 1.38 ng/dL (0.76-1.46); FREE THYROXINE INDEX 3.7 ug/dL (1.4-4.5); T4(THYROXINE) 9.9 ug/dL (4.7-13.3)
[2018-04-12 17:10] VITALS: BP 144/80
[2018-04-12 20:54] VITALS: BP 116/86
[2018-04-13 05:18] LABS: UA SPECIFIC GRAVITY >=1.030 (1.005-1.035); microscopic required? YES; urine erythrocyte NEGATIVE (NEGATIVE)
[2018-04-13 05:48] LABS: AMPHETAMINE QUAL UR NONE DETECTED (See below)
[2018-04-13 05:49] VITALS: BP 100/57
[2018-04-13 07:29] LABS: BASOPHIL % 0.1 % (0-2); PLATELET COUNT 56 x10^3mcL (130-400); RED CELL DISTRIBUTION WIDTH 15.3 % (11.5-14.5)
[2018-04-13 07:38] LABS: ALKALINE PHOSPHATASE 158 U/L (46-116); ALT/SGPT 21 U/L (16-63); AST/SGOT 46 U/L (15-37); BILIRUBIN DIRECT 4.05 mg/dL (0.0-0.2); BILIRUBIN TOTAL 5.81 mg/dL (0.20-1.00); CALCIUM 7.7 mg/dL (8.5-10.1); CHLORIDE SERUM 104 mmol/L (98-107); GFR1 > 60 mL/min; GLUCOSE SERUM 106 mg/dL (74-106); MAGNESIUM 1.6 mg/dL (1.8-2.4); PHOSPHOROUS 2.7 mg/dL (2.5-4.9); POTASSIUM SERUM 4.8 mmol/L (3.5-5.1); SODIUM SERUM 139 mmol/L (136-145)
[2018-04-13 07:41] LABS: ALBUMIN 2.2 g/dL (3.4-5.0); TOTAL PROTEIN, SERUM 5.8 g/dL (6.4-8.2)
[2018-04-13 09:33] VITALS: BP 149/80
[2018-04-13 17:09] VITALS: BP 105/59
[2018-04-14 05:34] VITALS: BP 113/73
[2018-04-14 09:05] VITALS: BP 121/74
[2018-04-14 09:47] LABS: BASOPHIL % 0.9 % (0-2); RED CELL DISTRIBUTION WIDTH 13.9 % (11.5-14.5)
[2018-04-14 10:15] LABS: CALCIUM 8.2 mg/dL (8.5-10.1); CARBON DIOXIDE 25.9 mmol/L (21-32); CHLORIDE SERUM 104 mmol/L (98-107); CREATININE SERUM 0.9 mg/dL (0.7-1.3); GFR1 > 60 mL/min; GLUCOSE SERUM 127 mg/dL (74-106); MAGNESIUM 1.8 mg/dL (1.8-2.4); PHOSPHOROUS 2.4 mg/dL (2.5-4.9); POTASSIUM SERUM 4.4 mmol/L (3.5-5.1); SODIUM SERUM 138 mmol/L (136-145)
[2018-04-14 10:30] LABS: PLATELET COUNT 71 x10^3mcL (130-400)
[2018-04-14] MEDS ORDERED: LEVAQUIN750 MG PO (12:28)
[2018-04-14] MEDS ORDERED: LAC PO (12:29)
[2018-04-14] MEDS ORDERED: MOT600 PO (12:30)
[2018-04-14 13:08] VITALS: BP 121/74
== END 2018-04-14 15:10 | disposition home or self-care (01) | DRG 249 ==
LOC: ED 11:34 → MU 14:06
PROVIDERS: Emergency Medicine; Family Medicine
DX: K52.9 Noninfective gastroenteritis and colitis, unspecified (principal); E43 Unspecified severe protein-calorie malnutrition; E87.2 Acidosis; E83.42 Hypomagnesemia; E83.39 Other disorders of phosphorus metabolism; K70.30 Alcoholic cirrhosis of liver without ascites; F10.20 Alcohol dependence, uncomplicated; K80.80 Other cholelithiasis without obstruction; B18.2 Chronic viral hepatitis C; D47.3 Essential (hemorrhagic) thrombocythemia; R74.0 Nonspecific elevation of levels of transaminase and lactic acid dehydrogenase [LDH]; H91.8X1 Other specified hearing loss, right ear; K42.9 Umbilical hernia without obstruction or gangrene; Z66 Do not resuscitate; F17.210 Nicotine dependence, cigarettes, uncomplicated; Z68.28 Body mass index [BMI] 28.0-28.9, adult
CPT/HCPCS: 84439; C9113; G0480; J1885; J1956; J2270; J2405; J3010; J3490; J7030; J7040; Q0092

== ENCOUNTER 2018-05-07 10:01 | Emergency (ER) | payer OTHER ==
[~2018-05-07] VITALS: Ht 177.8 cm; Wt 91.3 kg
[~2018-05-07 10:01] MED LIST changes: +LEVAQUIN750 MG PO; +MOT600 PO; +OSTERA TABLET1 EACH; +VIT C-ROSE HIP500 MG
[2018-05-07 10:15] VITALS: Ht 177.8 cm; Wt 91.3 kg
[2018-05-07 13:15] VITALS: BP 127/78
== END 2018-05-07 13:15 | disposition home or self-care (01) ==
LOC: ED 10:01
DX: S00.431A Contusion of right ear, initial encounter (principal); S00.81XA Abrasion of other part of head, initial encounter; S09.8XXA Other specified injuries of head, initial encounter; I10 Essential (primary) hypertension; K74.60 Unspecified cirrhosis of liver; I85.10 Secondary esophageal varices without bleeding; Z98.890 Other specified postprocedural states; W01.0XXA Fall on same level from slipping, tripping and stumbling without subsequent striking against object, initial encounter; Y93.89 Activity, other specified; Y92.89 Other specified places as the place of occurrence of the external cause; Y99.8 Other external cause status
CPT/HCPCS: J2001

== ENCOUNTER 2018-05-09 10:49 | Emergency (ER) | payer OTHER ==
[~2018-05-09] VITALS: Ht 180.3 cm; Wt 92.7 kg
[2018-05-09 11:05] VITALS: BP 138/89; Ht 180.3 cm; Wt 92.7 kg
== END 2018-05-09 12:35 | disposition home or self-care (01) ==
LOC: ED 10:49
DX: S00.431D Contusion of right ear, subsequent encounter (principal); K74.60 Unspecified cirrhosis of liver; Z98.890 Other specified postprocedural states; F17.210 Nicotine dependence, cigarettes, uncomplicated; W22.8XXD Striking against or struck by other objects, subsequent encounter

== ENCOUNTER 2018-05-11 08:45 | Emergency (ER) | payer OTHER ==
[~2018-05-11] VITALS: Ht 180.3 cm; Wt 92.5 kg
[2018-05-11 08:56] VITALS: Ht 180.3 cm; Wt 92.5 kg
[2018-05-11 09:41] VITALS: BP 141/107
== END 2018-05-11 09:41 | disposition home or self-care (01) ==
LOC: ED 08:45
DX: S00.431D Contusion of right ear, subsequent encounter (principal); I10 Essential (primary) hypertension; K74.60 Unspecified cirrhosis of liver; Z90.79 Acquired absence of other genital organ(s); X58.XXXD Exposure to other specified factors, subsequent encounter

== ENCOUNTER 2018-06-23 17:38 | Inpatient (IN) | payer OTHER ==
[~2018-06-23] VITALS: Ht 180.3 cm; Wt 89.8 kg
[2018-06-23 17:41] VITALS: Ht 180.3 cm; Wt 89.8 kg
[2018-06-23 18:32] LABS: BASOPHIL % 0.2 % (0-2)
[2018-06-23 18:41] LABS: CALCIUM 8.3 mg/dL (8.5-10.1); CARBON DIOXIDE 25.5 mmol/L (21-32); CHLORIDE SERUM 106 mmol/L (98-107); CREATININE SERUM 0.7 mg/dL (0.7-1.3); GFR1 > 60 mL/min; GLUCOSE SERUM 96 mg/dL (74-106); POTASSIUM SERUM 4.9 mmol/L (3.5-5.1); SODIUM SERUM 142 mmol/L (136-145)
[2018-06-23 18:47] LABS: ALKALINE PHOSPHATASE 217 U/L (46-116); ALT/SGPT 38 U/L (16-63); AST/SGOT 112 U/L (15-37); PLATELET COUNT 58 x10^3mcL (130-400); RED CELL DISTRIBUTION WIDTH 16.6 % (11.5-14.5); TOTAL PROTEIN, SERUM 6.6 g/dL (6.4-8.2)
[2018-06-23 18:52] LABS: ALBUMIN 2.5 g/dL (3.4-5.0)
[2018-06-23 18:53] LABS: BILIRUBIN TOTAL 12.03 mg/dL (0.20-1.00)
[2018-06-23] MEDS ORDERED: PROPRANOLOL HCL10 MG PO (19:03)
[2018-06-23 19:32] LABS: MAGNESIUM 1.8 mg/dL (1.8-2.4); PHOSPHOROUS 2.3 mg/dL (2.5-4.9)
[2018-06-23 19:33] LABS: CHOLESTEROL/HDL RATIO 4.4
[2018-06-23 19:50] VITALS: BP 126/72
[2018-06-23 21:39] VITALS: BP 126/72
[2018-06-23 23:00] VITALS: BP 130/82
[2018-06-23 23:54] LABS: BILIRUBIN DIRECT 8.84 mg/dL (0.0-0.2)
[2018-06-24 01:58] LABS: microscopic required? NO
[2018-06-24 02:39] LABS: urine erythrocyte NEGATIVE (NEGATIVE)
[2018-06-24 02:45] LABS: AMPHETAMINE QUAL UR NONE DETECTED (See below)
[2018-06-24 03:00] VITALS: BP 141/88
[2018-06-24 05:14] LABS: BASOPHIL % 0.3 % (0-2)
[2018-06-24 05:31] LABS: CALCIUM 7.6 mg/dL (8.5-10.1); CARBON DIOXIDE 26.3 mmol/L (21-32); CHLORIDE SERUM 106 mmol/L (98-107); CREATININE SERUM 0.8 mg/dL (0.7-1.3); GFR1 > 60 mL/min; GLUCOSE SERUM 102 mg/dL (74-106); POTASSIUM SERUM 4.8 mmol/L (3.5-5.1); SODIUM SERUM 140 mmol/L (136-145)
[2018-06-24 05:49] LABS: PLATELET COUNT 48 x10^3mcL (130-400); RED CELL DISTRIBUTION WIDTH 16.5 % (11.5-14.5)
[2018-06-24 06:00] VITALS: BP 131/89
[2018-06-24 06:58] VITALS: BP 114/83
[2018-06-24 07:35] VITALS: BP 136/88
[2018-06-24 11:26] LABS: BASOPHIL % 0.5 % (0-2); PLATELET COUNT 56 x10^3mcL (130-400); RED CELL DISTRIBUTION WIDTH 16.7 % (11.5-14.5)
[2018-06-24 12:10] VITALS: BP 115/72
[2018-06-24 21:28] VITALS: BP 110/72
[2018-06-25 05:28] VITALS: BP 111/63
[2018-06-25 09:45] VITALS: BP 129/74
[2018-06-25] MEDS ORDERED: PROTONIX40 MG PO (10:48)
[2018-06-25 12:00] VITALS: BP 105/57; BP 129/74
== END 2018-06-25 13:58 | disposition home or self-care (01) | DRG 280 ==
LOC: ED 17:38 → DU 18:56 → IC 18:56 → DU 06-24 16:28 → MU 06-24 16:31 → DU 06-25 07:32
PROVIDERS: Emergency Medicine; Internal Medicine Gastroenterology; ADMIT General Practice
PROC: 0DB78ZX Excision of Stomach, Pylorus, Via Natural or Artificial Opening Endoscopic, Diagnostic (ICD-10-PCS; principal; 2018-06-24 10:30)
DX: K70.30 Alcoholic cirrhosis of liver without ascites (principal); N17.0 Acute kidney failure with tubular necrosis; I85.01 Esophageal varices with bleeding; E43 Unspecified severe protein-calorie malnutrition; D69.6 Thrombocytopenia, unspecified; K26.4 Chronic or unspecified duodenal ulcer with hemorrhage; D68.4 Acquired coagulation factor deficiency; K76.6 Portal hypertension; E83.39 Other disorders of phosphorus metabolism; F10.10 Alcohol abuse, uncomplicated; Y90.0 Blood alcohol level of less than 20 mg/100 ml; R74.0 Nonspecific elevation of levels of transaminase and lactic acid dehydrogenase [LDH]; B19.20 Unspecified viral hepatitis C without hepatic coma; F12.10 Cannabis abuse, uncomplicated; F17.210 Nicotine dependence, cigarettes, uncomplicated; Z68.28 Body mass index [BMI] 28.0-28.9, adult
CPT/HCPCS: 43235; 82941; 83880; C9113; G0480; J0171; J1200; J1610; J2250; J2310; J2354; J2405; J2765; J3010; J3490; J7030; Q0092